=== PATIENT | male | born 1945 | race Caucasian/White ===

== ENCOUNTER → 2017-07-01 | Day surgery (SDC) | payer MEDICARE, OTHER ==
[~2017-07-01] MED LIST: BISOPROLOL FUMAR5 MG PO; CEFTRIAXONE SOD 1 GM/NS 50 ML 50 ML IV ONE; DESFLURANE 240 ML BTL INH ONE; DEXAMETHASONE SOD PHOS INJ 4 MG/ML VIAL ONE; FENTANYL CITRATE/PF 100MCG/2 ML INJ ONE; GENTAMICIN 80MG/NS IV ONE; KETOROLAC TROMETHAMINE 30 MG/ML VIAL ONE; LIDOCAINE HCL 2% LOCAL INJ 5 ML SDV VIAL INJ ONE; ONDANSETRON HCL INJ 2 MG/ML VIAL ONE; PROPOFOL IV EMULSION 10 MG/ML 20 ML VIAL ONE; SIMVASTATIN40 MG PO; SODIUM CHLORIDE 0.9% 1000ML 1,000 ML IV SCH
--- NOTE | 2017-07-01 08:24 | Diagnostic Imaging Report ---
PROCEDURE: A single AP view of the chest. COMPARISON: None. INDICATIONS: PREOPERATIVE CHEST XRAY FOR PROSTATE SURGERY FINDINGS: Lines/tubes: None. Lungs: The lungs are well inflated and clear. There is no evidence of pneumonia or pulmonary edema. Bibasilar atelectasis. Pleura: There is no pleural effusion or pneumothorax. Heart and mediastinum: The heart and the mediastinum are unremarkable. Atherosclerotic calcifications. Bones: No acute bony abnormality. Degenerative changes of the thoracic spine. IMPRESSION: No acute radiographic abnormality. Dictated by: Javy Montenegro M.D. on 07/01/2017 at 8:32 Electronically approved by: Javy Montenegro M.D. on 07/01/2017 at 8:32
--- NOTE | 2017-07-01 12:07 | Operative Report ---
PREOPERATIVE DIAGNOSES 1. Benign prostatic hypertrophy. 2. Rule out carcinoma of the prostate. 3. Abnormal prostate specific antigen. POSTOPERATIVE DIAGNOSES 1. Benign prostatic hypertrophy. 2. Rule out carcinoma of the prostate. 3. Abnormal prostate specific antigen. OPERATIONS 1. Transrectal ultrasound of the prostate. 2. Transrectal ultrasound-guided needle biopsies. 3. Cystourethroscopy. [employer]CTION WORKER: Dr. Aly. ANESTHETIC: General. INDICATIONS: Mr. Das is a 72-year-old male who presented with a chief complaint of lower urinary tract obstructive symptoms. Rectal exam showed an enlarged prostate gland about 40 g with a hard nodule at the right base. His PSA was 4.8. PROCEDURE: This patient was placed on the table in the lithotomy position, and transrectal ultrasound of the prostate was performed and the prostate measured 4.51 x 2.33 x 3.36 with a total volume of 18.73. The hypoechoic area measured 1.45 x 1.08 cm. Transrectal ultrasound-guided needle biopsies were obtained, and multiple biopsies were obtained from the hypoechoic area and also from the normal-appearing prostate to map it for any multifocal carcinoma. This patient was then prepped and draped in a sterile manner. A #[id number]-Tajik cystoscope was used and cystourethroscopy was performed, and the urethra was noted to be normal. The prostatic urethra was about 3 cm long, bilobar and occlusive. The prostate was also very congested. Cystoscopy was then performed using both the right-angle and the foroblique lens, and it was noted that the bladder mucosa was normal with no evidence of gross tumor, pathology, or any papillary lesions. The bladder wall was moderately trabeculated. Both ureteral orifices were seen and were within normal position, configuration, and efflux. The bladder was drained, cystoscope removed, and patient taken to the recovery room in satisfactory condition. Plans for this patient are to be placed on Levaquin 500 mg once a day for 1 week. Ultracet tablet 1 every 6 hours p.r.n. and was given 20. He is to return to the office in 1 week when at that time results of the biopsy will be back and we will proceed with whatever indicated procedure. Job#: [id number] SAK
== END | disposition home or self-care (01) ==
LOC: OR 06:49
PROVIDERS: ATTEND Specialist
DX: C61 Malignant neoplasm of prostate (principal); N40.1 Benign prostatic hyperplasia with lower urinary tract symptoms; N13.8 Other obstructive and reflux uropathy; N32.89 Other specified disorders of bladder; I12.9 Hypertensive chronic kidney disease with stage 1 through stage 4 chronic kidney disease, or unspecified chronic kidney disease; N18.9 Chronic kidney disease, unspecified; E78.5 Hyperlipidemia, unspecified
CPT/HCPCS: 52000; 55700; 71010; 76872; 76942; 88305; J0696; J1100; J1580; J1885; J2001; J2405